=== PATIENT | female | born 1965 | race African-American/Black ===

== ENCOUNTER 2016-09-15 10:15 | Observation (INO) | payer BC ==
[2016-09-15 10:23] VITALS: BMI 43.9
[2016-09-15] MEDS ORDERED: ASPIRIN 81 MG CHEWABLE TABLETS ONE (11:02)
--- NOTE | 2016-09-15 11:17 | PDOC ---
History of Present Illness - General History Source: Patient Exam Limitations: No Limitations <Elvie Conn - Last Filed: 09/15/16 14:04> - General History Source: Patient Exam Limitations: No Limitations - History of Present Illness Initial Comments: 09/15/16 11:18 The patient is a 51 year old female, with a significant past medical history of Asthma, Diverticulosis, HTN who presents to the emergency department with chest pain since last night. The patient describes sharp, intermittent, nonradiating, chest pain however currently is dull and "vibrating". Patient took aspirin last night and reports minimal relief. Patient reports baseline dyspnea on exertion that has progressively worsened over the past few weeks. Patient also mentions one year ago, she was flying on a airplane from [place] and suddenly experienced SOB. Patient was taken to Urgent care which revealed negative workup. Patient also states she was diagnosed with an unspecified cardiac disorder. Patient presents to the ED for further evaluation. Upon arrival, patient's vital signs significant for 95 HR. She denies chest pain, headache or dizziness. She denies fever, chills, abdominal pain, nausea, vomit, diarrhea or constipation. She denies dysuria, frequency, urgency or hematuria. Allergies: rosuvastatin calcium Past surgical history: Cholecystectomy, Tubal ligation Social history: Current everyday smoker for the past 20 years (20 cigarettes) PCP: Dr. Shala Cordova <Kari Gould - Last Filed: 09/15/16 14:10> - General Chief Complaint: Chest Pain Stated Complaint: CHEST PAIN Time Seen by Provider: 09/15/16 10:24 Past History - Past Medical History Anemia: No Asthma: Yes Cancer: No Cardiac Disorders: No CVA: No COPD: No CHF: No Dementia: No Diabetes: No GI Disorders: Yes (DIVERTICULOSIS) Disorders: No HTN: No Hypercholesterolemia: Yes Liver Disease: No Seizures: No Thyroid Disease: No - Surgical History Cholecystectomy: Yes Orthopedic Surgery: No - Psycho/Social/Smoking Cessation Hx Suicidal Ideation: No Smoking Status: Yes Smoking History: Current every day smoker Number of Cigarettes Smoked Daily: 20 Information on smoking cessation initiated: No 'Breaking Loose' booklet given: 11/06/14 Hx Alcohol Use: No Drug/Substance Use Hx: No Substance Use Type: None Hx Substance Use Treatment: No <Elvie Conn - Last Filed: 09/15/16 14:04> <Kari Gould - Last Filed: 09/15/16 14:10> - Past Medical History Allergies/Adverse Reactions: Allergies Allergy/AdvReac Type Severity Reaction Status Date / Time rosuvastatin calcium Allergy Severe Unverified 09/15/16 10:24 [From Crestor] Home Medications: Ambulatory Orders Pravastatin Sodium 10 mg PO DAILY 11/06/14 Metoprolol Succinate [Toprol Xl] 50 mg PO DAILY 09/15/16 Review of Systems - Review of Systems Able to Perform ROS?: Yes Comments:: 09/15/16 11:18 GENERAL/CONSTITUTIONAL: No fever or chills. No weakness. HEAD, EYES, EARS, NOSE AND THROAT: No change in vision. No ear pain or discharge. No sore throat. GASTROINTESTINAL: No nausea, vomiting, diarrhea or constipation. GENITOURINARY: No dysuria, frequency, or change in urination. CARDIOVASCULAR: + chest pain. + dyspnea on exertion. RESPIRATORY: No cough, wheezing, or hemoptysis. MUSCULOSKELETAL: No joint or muscle swelling or pain. No neck or back pain. SKIN: No rash NEUROLOGIC: No headache, vertigo, loss of consciousness, or change in strength/ sensation. ENDOCRINE: No increased thirst. No abnormal weight change. HEMATOLOGIC/LYMPHATIC: No anemia, easy bleeding, or history of blood clots. ALLERGIC/IMMUNOLOGIC: No hives or skin allergy. <Kari Gould - Last Filed: 09/15/16 14:10> *Physical Exam - Vital Signs Last Vital Signs Temp Pulse Resp BP Pulse Ox 98.1 F 93 H 18 124/71 96 09/15/16 10:18 09/15/16 10:18 09/15/16 10:18 09/15/16 10:18 09/15/16 10:18 <Elvie Conn - Last Filed: 09/15/16 14:04> - Vital Signs Last Vital Signs Temp Pulse Resp BP Pulse Ox 98.1 F 93 H 18 124/71 96 09/15/16 10:18 09/15/16 10:18 09/15/16 10:18 09/15/16 10:18 09/15/16 10:18 - Physical Exam Comments: 09/15/16 11:18 GENERAL: Awake, alert, and fully oriented, in no acute distress HEAD: No signs of trauma EYES: PERRLA, EOMI, sclera anicteric, conjunctiva clear ENT: Auricles normal inspection, nares patent, Moist mucosa NECK: Normal ROM, supple, no lymphadenopathy, JVD, or masses LUNGS: Breath sounds equal, clear to auscultation bilaterally. No wheezes, and no crackles HEART: Regular rate and rhythm, normal S1 and S2, no murmurs, rubs or gallops ABDOMEN: +Obese. Soft, nontender, normoactive bowel sounds. No guarding, no rebound. No masses EXTREMITIES: Normal range of motion, no edema. No clubbing or cyanosis. No cords, erythema, or tenderness NEUROLOGICAL: Normal speech SKIN: Warm, Dry, normal turgor, no rashes or lesions noted. <Kari Gould - Last Filed: 09/15/16 14:10> Heart Score/ECG Review #1 General ECG Interpretation: Sinus Rhythm, Normal Rate (96), Normal Intervals, No acute ischemic changes Compared to previous ECG there are: No significant change (compared 02/21/12) <Elvie Conn - Last Filed: 09/15/16 14:04> ED Treatment Course - LABORATORY CBC & Chemistry Diagram: 09/15/16 11:14 09/15/16 11:14 <Elvie Conn - Last Filed: 09/15/16 14:04> - LABORATORY CBC & Chemistry Diagram: 09/15/16 11:14 09/15/16 11:14 <Kari Gould - Last Filed: 09/15/16 14:10> Medical Decision Making - Medical Decision Making 09/15/16 11:14 51 yo F with h/o HTN HLD, and " heart condition" here with /co chest pain. started last evening. sharp intermittent, no radiation. no assoc sob or diaphoresis. not pleuritic. no leg swelling. no h/o dvt or pe. no cough no f/c . has not had pain in the past. did have extensive cardiac workup 11/2015 for exertional sob and tachycardia she was having at that time. no family h/o cad. on exam. pt obese, awake alert lungs clear heart rrr no mrg.abd soft nt nd. ext wwp no calf tenderness. no edema. symmetric pulses. nuero awake alert facies symmetric. moves all ext. differential: angina, infection, gerd, chest wall pain, spasm. no risk factors for PE. plan asa ekg tele trop labs cxr will d/w dr cordova and lead painter. 09/15/16 14:03 d/w dr cordova, pt with h/o pulm htn, atypical septal hypertrophy, had stress in 3 16 was normal. but has very severe sleep apnea, desat at night time. concerns for angina like equivalent due to severe sleep apnea. plan observe in tele. d/w dr marquez. will admit to tele for observation <Elvie Conn - Last Filed: 09/15/16 14:04> - Medical Decision Making 09/15/16 12:[address] Cordova via phone answering service. Awaiting call. 09/15/16 12:29 Patient responded to the call. Patient's case was discussed. 09/15/16 12:[address] Mayra Galvez to admit. Called Dr. Galvez via phone answering service. Patients case was discussed. 09/15/16 12:40 Dr. Caro requests patient be admitted by Medicine for Observation. 09/15/2016 12:51 Dr. Marquez paged via phone answering service. Awaiting call back. 09/15/16 13:03 Dr. Marquez paged via phone answering service. Awaiting call back. 09/15/16 13:21 CXR Impression: No evidence of active pulmonary disease. Reported By: Parth Warren MD 09/15/16 1234 09/15/16 13:52 Dr. Marquez paged via phone answering service. Awaiting call back. 09/15/16 14:00 Dr. Marquez returned the page and patients case was discussed. 09/15/16 14:08 Dr. Arriola-- Cardiology senior communications engineer paged via phone answering service. Awaiting call back. <Kari Gould - Last Filed: 09/15/16 14:10> *DC/Admit/Observation/Transfer - Discharge Dispostion Admit: Yes <Elvie Conn - Last Filed: 09/15/16 14:04> - Attestations Scribe Attestion: 09/15/16 11:18 Documentation prepared by Kari Gould, acting as medical fee clerk for Elvie Conn MD, MD/DO. <Kari Gould - Last Filed: 09/15/16 14:10> Diagnosis at time of Disposition: Chest pain - Referrals Referrals: Shala Cordova MD [Primary Care Provider] -
[2016-09-15 11:18] LABS: BASOPHIL 2.9 % (0-2.0); EOSINOPHIL 0.7 % (0-4.5); MCHC 33.4 g/dl (32.0-36.0); MEAN CELL VOLUME 95.7 fl (80-96); MEAN PLT VOLUME 7.6 fl (7.5-11.1); NEUTROPHILS 49.9 % (42.8-82.8); PLATELET COUNT 248 K/MM3 (134-434); RDW 16.1 % (11.6-15.6); WHITE BLOOD COUNT 9.2 K/mm3 (4.0-10.0)
[2016-09-15] MEDS ORDERED: ASPIRIN 81 MG CHEWABLE TABLETS PO ONE (11:18)
[2016-09-15 11:31] LABS: INR 0.97 (0.82-1.09); PROTHROMBIN TIME (PATIENT) 10.7 SEC (9.98-11.88)
[2016-09-15 11:33] LABS: ACTIVATED PTT 33.6 SECONDS (26.9-34.4)
[2016-09-15 11:50] LABS: ALBUMIN 3.3 g/dl (3.4-5.0); ANION GAP 6 (8-16); BILIRUBIN,TOTAL 0.2 mg/dL (0.2-1.0); CALCIUM 8.6 mg/dL (8.5-10.1); CO2 26 mmol/L (21-32); CREATININE 0.6 mg/dL (0.55-1.02); GLUCOSE,RANDOM 113 mg/dL (74-106); SGOT/AST 14 U/L (15-37); SGPT/ALT 21 U/L (12-78)
[2016-09-15 11:52] LABS: ALK PHOS 76 U/L (45-117); CPK 177 IU/L (26-192); TOT PROT 6.5 g/dl (6.4-8.2); TROPONIN I 0.04 ng/ml (0.00-0.05)
--- NOTE | 2016-09-15 19:44 | HP ---
Admitting History and Physical - Primary Care Physician PCP: Ce Agustin - Admission Chief Complaint: chest pain History of Present Illness: - 51 year old female, with a significant past medical history of Asthma, Diverticulosis, HTN who presents to the emergency department with chest pain since last night. The patient describes sharp, intermittent, nonradiating. Patient took aspirin last night and reports minimal relief. Patient reports baseline dyspnea on exertion that has progressively worsened over the past few weeks. - Past Medical History Cardiovascular: Yes: HTN Pulmonary: Yes: Asthma ...LMP: 08/07/12 - Smoking History Smoking history: Current every day smoker Aproximately how many cigarettes per day: 20 - Alcohol/Substance Use Hx Alcohol Use: No Home Medications - Allergies Allergies/Adverse Reactions: Allergies Allergy/AdvReac Type Severity Reaction Status Date / Time rosuvastatin calcium Allergy Severe Unverified 09/15/16 10:24 [From Crestor] - Home Medications Home Medications: Ambulatory Orders Pravastatin Sodium 10 mg PO DAILY 11/06/14 Metoprolol Succinate [Toprol Xl] 50 mg PO DAILY 09/15/16 Physical Examination Vital Signs: Vital Signs Temperature 98.4 F 09/15/16 19:28 Pulse Rate 76 09/15/16 19:28 Respiratory Rate 18 09/15/16 19:28 Blood Pressure 117/68 09/15/16 19:28 O2 Sat by Pulse Oximetry (%) 98 09/15/16 19:28 Constitutional: Yes: No Distress HENT: Yes: Atraumatic Neck: Yes: Supple Cardiovascular: Yes: Regular Rate and Rhythm Respiratory: Yes: CTA Bilaterally Gastrointestinal: Yes: Normal Bowel Sounds Extremities: Yes: WNL Edema: No Peripheral Pulses WNL: Yes Neurological: Yes: Alert, Oriented Problem List - Problems (1) Chest pain Assessment/Plan: tele monitoring fu cardiac enzymes cardiology consult Code(s): R07.9 - CHEST PAIN, UNSPECIFIED Qualifiers: Chest pain type: unspecified Qualified Code(s): R07.9 - Chest pain, unspecified (2) Diverticulosis Code(s): K57.90 - DVRTCLOS OF INTEST, PART UNSP, W/O PERF OR ABSCESS W/O BLEED Qualifiers: Diverticulosis site: unspecified location Diverticulosis bleeding: diverticulosis without bleeding Qualified Code(s): K57.90 - Diverticulosis of intestine, part unspecified, without perforation or abscess without bleeding (3) HTN (hypertension) Assessment/Plan: on meds Code(s): I10 - ESSENTIAL (PRIMARY) HYPERTENSION Qualifiers: Hypertension type: essential hypertension Qualified Code(s): I10 - Essential (primary) hypertension (4) Hypercholesterolemia Assessment/Plan: on meds stable Code(s): E78.00 - PURE HYPERCHOLESTEROLEMIA, UNSPECIFIED Assessment/Plan Laboratory Results - last 24 hr 09/15/16 09/15/16 09/15/16 11:14 11:14 11:14 WBC 9.2 RBC 4.76 Hgb 15.2 Hct 45.6 H MCV 95.7 MCH 32.0 MCHC 33.4 RDW 16.1 H Plt Count 248 MPV 7.6 Neutrophils % 49.9 Lymphocytes % 41.8 H Monocytes % 4.7 Eosinophils % 0.7 Basophils % 2.9 H INR 0.97 PTT (Actin FS) 33.6 Sodium 139 Potassium 3.7 Chloride 107 Carbon Dioxide 26 Anion Gap 6 L BUN 6 L Creatinine 0.6 Creat Clearance w eGFR > 60 Random Glucose 113 H D Calcium 8.6 Total Bilirubin 0.2 D AST 14 L D ALT 21 D Alkaline Phosphatase 76 Creatine Kinase 177 Creatine Kinase Index 1.2 CK-MB (CK-2) 2.162 Troponin I 0.04 Total Protein 6.5 Albumin 3.3 L Serum , Qual 09/15/16 11:14 WBC RBC Hgb Hct MCV MCH MCHC RDW Plt Count MPV Neutrophils % Lymphocytes % Monocytes % Eosinophils % Basophils % INR PTT (Actin FS) Sodium Potassium Chloride Carbon Dioxide Anion Gap BUN Creatinine Creat Clearance w eGFR Random Glucose Calcium Total Bilirubin AST ALT Alkaline Phosphatase Creatine Kinase Creatine Kinase Index CK-MB (CK-2) Troponin I Total Protein Albumin Serum , Qual Negative Active Medications Generic Name Dose Route Start Last Admin Trade Name Freq PRN Reason Stop Dose Admin Aspirin 81 mg 09/16/16 11:00 09/16/16 12:12 Ecotrin - PO 81 mg DAILY [facility] Administration Metoprolol Succinate 50 mg 09/16/16 10:00 09/16/16 10:05 Toprol Xl - PO 50 mg DAILY [facility] Administration Non-Formulary Medication 10 mg 09/16/16 10:00 Pravastatin Sodium [Pravastatin Sodium] PO DAILY [facility]
[2016-09-15 19:49] LABS: TROPONIN I 0.04 ng/ml (0.00-0.05)
[2016-09-16 07:43] LABS: BASOPHIL 0.6 % (0-2.0); EOSINOPHIL 0.8 % (0-4.5); MCH 32.3 pg (25.7-33.7); MCHC 33.8 g/dl (32.0-36.0); MEAN CELL VOLUME 95.7 fl (80-96); MEAN PLT VOLUME 7.6 fl (7.5-11.1); NEUTROPHILS 48.5 % (42.8-82.8); PLATELET COUNT 250 K/MM3 (134-434); RDW 15.9 % (11.6-15.6); WHITE BLOOD COUNT 8.3 K/mm3 (4.0-10.0)
[2016-09-16 08:11] LABS: ALBUMIN 3.4 g/dl (3.4-5.0); ANION GAP 9 (8-16); CALCIUM 8.7 mg/dL (8.5-10.1); CO2 26 mmol/L (21-32); GLUCOSE,RANDOM 101 mg/dL (74-106)
[2016-09-16 08:12] LABS: ALK PHOS 78 U/L (45-117); BILIRUBIN,TOTAL 0.3 mg/dL (0.2-1.0); CREATININE 0.6 mg/dL (0.55-1.02); SGOT/AST 24 U/L (15-37); SGPT/ALT 28 U/L (12-78); TOT PROT 6.4 g/dl (6.4-8.2); TROPONIN I 0.04 ng/ml (0.00-0.05)
[2016-09-16] MEDS ORDERED: PATIENT'S OWN MEDICATION (NON-FORMULARY) (Pravastatin Sodium [Pravastatin Sodium] 10 MG) PO SCH (10:00)
[2016-09-16] MEDS ORDERED: METOPROLOL SUCCINATE 50 MG TAB.SR.24H (FP) PO SCH (10:00)
--- NOTE | 2016-09-16 10:46 | CON.CARD ---
Consult Consult Specialty:: Cardiology Referred by:: Dr. Agustin Reason for Consultation:: Cardiac evaluation - History of Present Illness Chief Complaint: Chest pain History of Present Illness: Patient is a 51 year old female with underlying history of hypertension, diverticulosis and hypercholesterolemia who presents with left side chest pressure described initially "sharp" and now a dullness without radiation to arm or jaw. She denies shortness of breath or palpitations. She denies paroxysmal nocturnal dyspnea or orthopnea. She denies fever or chills. She denies headache or lightheadedness. Patient is followed by Dr. Shala Cordova at [facility]. She has had cardiac work up last year and was told she has a heart condition, but she could not elaborate. Cardiology consultation was called for further evaluation. - History Source History Provided By: Patient, Medical Record Limitations to Obtaining History: No Limitations - Past Medical History Cardio/Vascular: Yes: HTN, Hyperlipdemia Gastrointestinal: Yes: Diverticulosis, Pancreatitis ...LMP: 08/27/16 ...: No - Past Surgical History Past Surgical History: Yes: Cholecystectomy Additional Surgical History: Ectopic - Alcohol/Substance Use Hx Alcohol Use: No - Smoking History Smoking history: Current every day smoker Have you smoked in the past 12 months: Yes Aproximately how many cigarettes per day: 10 Home Medications - Allergies Allergies/Adverse Reactions: Allergies Allergy/AdvReac Type Severity Reaction Status Date / Time rosuvastatin calcium Allergy Severe Unverified 09/15/16 10:24 [From Crestor] - Home Medications Home Medications: Ambulatory Orders Pravastatin Sodium 10 mg PO DAILY 11/06/14 Metoprolol Succinate [Toprol Xl] 50 mg PO DAILY 09/15/16 Family Disease History - Family Disease History Family Disease History: Diabetes: Father, Heart Disease: Brother (Cardiomyopathy ) Review of Systems - Review of Systems Constitutional: denies: Chills, Fever Cardiovascular: reports: Chest Pain. denies: Palpitations, Shortness of Breath Respiratory: denies: Cough, Hemoptysis, Orthopnea, PND, SOB, SOB on Exertion Gastrointestinal: denies: Abdominal Pain, Constipation, Diarrhea, Melena, Nausea , Rectal Bleeding, Vomiting Neurological: denies: Dizziness, Headache, Seizure, Syncope Vital Signs: Vital Signs Temperature 97 F L 09/16/16 08:47 Pulse Rate 72 09/16/16 08:47 Respiratory Rate 18 09/16/16 08:47 Blood Pressure 106/57 09/16/16 08:47 O2 Sat by Pulse Oximetry (%) 99 09/15/16 20:26 Neck: Yes: Supple Respiratory: Yes: CTA Bilaterally Gastrointestinal: Yes: Normal Bowel Sounds, Soft. No: Tenderness Cardiovascular: Yes: Regular Rate and Rhythm JVD: No Carotid Bruit: No PMI: Non-Displaced Heart Sounds: Yes: S1, S2. No: Gallop Edema: No - Other Data Labs, Other Data: CBC, BMP 09/16/16 06:45 09/16/16 06:45 INR, PTT INR 0.97 (0.82-1.09) 09/15/16 11:14 Troponin, BNP 09/15/16 09/16/16 19:15 06:45 Troponin I 0.04 0.04 Laboratory Results - last 24 hr 09/15/16 09/15/16 09/15/16 11:14 11:14 11:14 WBC 9.2 RBC 4.76 Hgb 15.2 Hct 45.6 H MCV 95.7 MCH 32.0 MCHC 33.4 RDW 16.1 H Plt Count 248 MPV 7.6 Neutrophils % 49.9 Lymphocytes % 41.8 H Monocytes % 4.7 Eosinophils % 0.7 Basophils % 2.9 H INR 0.97 PTT (Actin FS) 33.6 Sodium 139 Potassium 3.7 Chloride 107 Carbon Dioxide 26 Anion Gap 6 L BUN 6 L Creatinine 0.6 Creat Clearance w eGFR > 60 Random Glucose 113 H D Calcium 8.6 Total Bilirubin 0.2 D AST 14 L D ALT 21 D Alkaline Phosphatase 76 Creatine Kinase 177 Creatine Kinase Index 1.2 CK-MB (CK-2) 2.162 Troponin I 0.04 Total Protein 6.5 Albumin 3.3 L Serum , Qual 09/15/16 09/15/16 09/16/16 11:14 19:15 06:45 WBC 8.3 RBC 4.84 Hgb 15.6 H Hct 46.3 H MCV 95.7 MCH 32.3 MCHC 33.8 RDW 15.9 H Plt Count 250 MPV 7.6 Neutrophils % 48.5 Lymphocytes % 41.6 H Monocytes % 8.5 D Eosinophils % 0.8 Basophils % 0.6 INR PTT (Actin FS) Sodium Potassium Chloride Carbon Dioxide Anion Gap BUN Creatinine Creat Clearance w eGFR Random Glucose Calcium Total Bilirubin AST ALT Alkaline Phosphatase Creatine Kinase 196 H Creatine Kinase Index 1.3 CK-MB (CK-2) 2.653 Troponin I 0.04 Total Protein Albumin Serum , Qual Negative 09/16/16 09/16/16 06:45 06:45 WBC RBC Hgb Hct MCV MCH MCHC RDW Plt Count MPV Neutrophils % Lymphocytes % Monocytes % Eosinophils % Basophils % INR PTT (Actin FS) Sodium 139 Potassium 4.0 Chloride 104 Carbon Dioxide 26 Anion Gap 9 BUN 9 D Creatinine 0.6 Creat Clearance w eGFR > 60 Random Glucose 101 Calcium 8.7 Total Bilirubin 0.3 D AST 24 D ALT 28 D Alkaline Phosphatase 78 Creatine Kinase 186 Creatine Kinase Index 1.2 CK-MB (CK-2) 2.380 Troponin I 0.04 Total Protein 6.4 Albumin 3.4 Serum , Qual Sinus rhythm with nonspecific T wave abnormality in lateral leads Echo: Pending Imaging - Results Chest X-ray: Report Reviewed (Unremarkable) EKG: Report Reviewed Problem List - Problems (1) Chest pain Code(s): R07.9 - CHEST PAIN, UNSPECIFIED Qualifiers: Chest pain type: unspecified Qualified Code(s): R07.9 - Chest pain, unspecified (2) HTN (hypertension) Code(s): I10 - ESSENTIAL (PRIMARY) HYPERTENSION Qualifiers: Hypertension type: essential hypertension Qualified Code(s): I10 - Essential (primary) hypertension (3) Hypercholesterolemia Code(s): E78.00 - PURE HYPERCHOLESTEROLEMIA, UNSPECIFIED (4) Diverticulosis Code(s): K57.90 - DVRTCLOS OF INTEST, PART UNSP, W/O PERF OR ABSCESS W/O BLEED Qualifiers: Diverticulosis site: unspecified location Diverticulosis bleeding: diverticulosis without bleeding Qualified Code(s): K57.90 - Diverticulosis of intestine, part unspecified, without perforation or abscess without bleeding Assessment/Plan 1. Chest pain syndrome, etiology to be determined, rule out cardiac cause 2. Hypertension 3. Hypercholesterolemia 4. History of diverticulosis - asymptomatic PLAN: 1. Continue Metoprolol and Pravastatin 2. Add ASA 81 mg once a day 3. Transthoracic echocardiography to assess LV/RV and valvular function 4. Depending on findings, further cardiac work up may be considered including nuclear stress test if not done recently 5. Obtain medical record from [facility]. 6. Fasting lipid panel Further plans are to follow Willem Boyd MD
[2016-09-16] MEDS ORDERED: ASPIRIN COATED 81 MG TABLET.EC PO SCH (11:00)
[2016-09-16] MEDS ORDERED: ASPIRIN 81 MG CHEWABLE TABLETS ONE (12:03)
[2016-09-16] MEDS ORDERED: ASPIRIN COATED 81 MG TABLET.EC ONE (12:15)
--- NOTE | 2016-09-16 12:57 | EKG ---
Test Reason : Blood Pressure : / mmHG Vent. Rate : 096 BPM Atrial Rate : 096 BPM P-R Int : 158 ms QRS Dur : 074 ms QT Int : 340 ms P-R-T Axes : 060 015 093 degrees QTc Int : 429 ms NORMAL SINUS RHYTHM POSSIBLE LEFT ATRIAL ENLARGEMENT LEFT VENTRICULAR HYPERTROPHY ABNORMAL QRS-T ANGLE, CONSIDER PRIMARY T WAVE ABNORMALITY ABNORMAL ECG WHEN COMPARED WITH ECG OF 21-FEB-2012 18:30, CRITERIA FOR ANTERIOR INFARCT ARE NO LONGER PRESENT REPEAT EKG IF CLINICALLY INDICATED Confirmed by ANA SCALES MD ([id number]) on 09/16/2016 12:57:34 PM Referred By: Confirmed By:ANA SCALES MD
--- NOTE | 2016-09-16 15:39 | PN ---
Progress Note, Physician - Current Medication List Current Medications: Active Medications Aspirin (Ecotrin -) 81 mg PO DAILY [facility] Last Admin: 09/16/16 12:12 Dose: 81 mg Metoprolol Succinate (Toprol Xl -) 50 mg PO DAILY [facility] Last Admin: 09/16/16 10:05 Dose: 50 mg Non-Formulary Medication (Pravastatin Sodium [Pravastatin Sodium]) 10 mg PO DAILY [facility] - Objective Vital Signs: Vital Signs Temperature 98.1 F 09/16/16 14:50 Pulse Rate 76 09/16/16 14:50 Respiratory Rate 20 09/16/16 14:50 Blood Pressure 121/63 09/16/16 14:50 O2 Sat by Pulse Oximetry (%) 99 09/16/16 11:00 HENT: Yes: Atraumatic Neck: Yes: Supple Cardiovascular: Yes: Regular Rate and Rhythm Respiratory: Yes: CTA Bilaterally Gastrointestinal: Yes: Normal Bowel Sounds Extremities: Yes: WNL Edema: No Peripheral Pulses WNL: Yes Neurological: Yes: Alert, Oriented Labs: CBC, BMP 09/16/16 06:45 09/16/16 06:45 INR, PTT INR 0.97 (0.82-1.09) 09/15/16 11:14 Problem List - Problems (1) Chest pain Assessment/Plan: tele monitoring fu cardiac enzymes cardiology consult Code(s): R07.9 - CHEST PAIN, UNSPECIFIED Qualifiers: Chest pain type: unspecified Qualified Code(s): R07.9 - Chest pain, unspecified (2) Diverticulosis Code(s): K57.90 - DVRTCLOS OF INTEST, PART UNSP, W/O PERF OR ABSCESS W/O BLEED Qualifiers: Diverticulosis site: unspecified location Diverticulosis bleeding: diverticulosis without bleeding Qualified Code(s): K57.90 - Diverticulosis of intestine, part unspecified, without perforation or abscess without bleeding (3) HTN (hypertension) Assessment/Plan: on meds Code(s): I10 - ESSENTIAL (PRIMARY) HYPERTENSION Qualifiers: Hypertension type: essential hypertension Qualified Code(s): I10 - Essential (primary) hypertension (4) Hypercholesterolemia Assessment/Plan: on meds stable Code(s): E78.00 - PURE HYPERCHOLESTEROLEMIA, UNSPECIFIED
--- NOTE | 2016-09-16 17:53 | DS ---
Physical Examination Vital Signs: Vital Signs Temperature 98.1 F 09/16/16 14:50 Pulse Rate 76 09/16/16 14:50 Respiratory Rate 20 09/16/16 15:00 Blood Pressure 121/63 09/16/16 14:50 O2 Sat by Pulse Oximetry (%) 97 09/16/16 15:00 Labs: CBC, BMP 09/16/16 06:45 09/16/16 06:45 Discharge Summary Reason For Visit: CHEST PAIN Current Active Problems Chest pain (Acute) Diverticulosis (Acute) HTN (hypertension) (Acute) Hypercholesterolemia (Acute) - Instructions Diet, Activity, Other Instructions: see cardiology 1 week Referrals: Willem Boyd MD [Staff Physician] - Shala Cordova MD [Primary Care Provider] - - Home Medications Comprehensive Discharge Medication List: Ambulatory Orders Pravastatin Sodium 10 mg PO DAILY 11/06/14 Metoprolol Succinate [Toprol Xl] 50 mg PO DAILY 09/15/16 dc home cleared by cardiology fu cardio 1 week
[2016-09-16 18:37] VITALS: BP 118/52; PULSE 68; TEMP 97.2
== END 2016-09-16 20:44 | disposition home or self-care (01) ==
LOC: JER 10:15 → JERBED 14:04 → J4W 09-16 14:02
PROVIDERS: ADMIT Internal Medicine; ATTEND Internal Medicine
DX: R07.9 Chest pain, unspecified (principal); I10 Essential (primary) hypertension; E78.00 Pure hypercholesterolemia, unspecified; K57.90 Diverticulosis of intestine, part unspecified, without perforation or abscess without bleeding; J45.909 Unspecified asthma, uncomplicated; F17.210 Nicotine dependence, cigarettes, uncomplicated; Z88.8 Allergy status to other drugs, medicaments and biological substances
CPT/HCPCS: 36415; 71020-TC; 80053; 82553; 84484; 84703; 85025; 85610; 85730; 93005; 93010; 93306-TC; 99285-25; G0378

== ENCOUNTER 2021-02-25 11:13 | Emergency (ER) | payer BC ==
[2021-02-25 11:52] VITALS: TEMP 98.5; BMI 40.3
[2021-02-25 16:17] LABS: BASO % 0.7 % (0-2.0); HEMATOCRIT 46.2 % (32.4-45.2); MCH 30.1 pg (25.7-33.7); MCHC 32.5 g/dl (32.0-36.0); MEAN CELL VOLUME 92.7 fl (80-96); MEAN PLT VOLUME 7.3 fl (7.5-11.1); MONO % 15.7 % (3.8-10.2); NEUT % 60.6 % (42.8-82.8); PLATELET COUNT 272 10^3/uL (134-434); RBC 4.98 M/mm3 (3.60-5.2); RDW 15.7 % (11.6-15.6); WHITE BLOOD COUNT 7.4 K/mm3 (4.0-10.0)
[2021-02-25 16:23] LABS: INR 1.15 (0.83-1.09); PROTHROMBIN TIME (PATIENT) 13.3 SEC (9.7-13.0)
[2021-02-25] MEDS ORDERED: guaiFENesin/CODEINE 10 ML UNIT-DOSE CUPS PO ONE (16:34)
[2021-02-25] MEDS ORDERED: ACETAMINOPHEN 1000 MG/100 ML BAG IVPB ONE (16:34)
[2021-02-25 17:13] LABS: ALBUMIN 3.7 g/dl (3.4-5.0); BLOOD UREA NITROGEN 8.8 mg/dL (7-18)
[2021-02-25 17:16] LABS: CREATININE 0.6 mg/dL (0.55-1.3)
[2021-02-25 17:18] LABS: BILIRUBIN,TOTAL 0.2 mg/dL (0.2-1)
[2021-02-25] MEDS ORDERED: guaiFENesin/CODEINE 5 ML UNIT-DOSE CUPS PO ONE (17:30)
[2021-02-25] MEDS ORDERED: ACETAMINOPHEN INJECTION 100 ML IVPB ONE (17:30)
[2021-02-25] MEDS ORDERED: ACETAMINOPHEN 325 MG TABLET (FP) PO ONE (17:35)
[2021-02-25] MEDS ORDERED: ACETAMINOPHEN 500 MG TABLET (FP) ONE (17:39)
[2021-02-25 19:09] VITALS: BP 145/75; PULSE 90
== END 2021-02-25 19:10 | disposition home or self-care (01) ==
LOC: JER 11:13
DX: U07.1 COVID-19 (principal)
CPT/HCPCS: 36415; 71045-TC-FY; 80053; 82550; 82553; 83880; 84484; 85025; 85610; 87804; 93005; 93010; 99285-25; C9803; U0003; U0005

== ENCOUNTER 2022-09-08 10:18 | Emergency (ER) | payer BC ==
[2022-09-08 10:42] VITALS: BP 122/80; PULSE 71; RESP 20; TEMP 97.4; BMI 38.9
[2022-09-08] MEDS ORDERED: ACETAMINOPHEN 1000 MG/100 ML BAG IVPB ONE (11:45)
[2022-09-08] MEDS ORDERED: ONDANSETRON 4 MG/2 ML VIAL IVPB ONE (11:45)
[2022-09-08] MEDS ORDERED: SODIUM CHLORIDE 1,000 ML IV ONE (11:45)
[2022-09-08] MEDS ORDERED: ACETAMINOPHEN INJECTION 100 ML IVPB ONE (12:30)
[2022-09-08] MEDS ORDERED: ONDANSETRON 4 MG/2 ML VIAL ONE (12:30)
[2022-09-08 13:15] LABS: BASO % 0.7 % (0-2.0); EOS % 0.1 % (0-4.5); HEMATOCRIT 50.8 % (32.4-45.2); HEMOGLOBIN 17.9 GM/dL (10.7-15.3); LYMPH % 24.6 % (8-40); MCH 31.6 pg (25.7-33.7); MCHC 35.2 g/dl (32.0-36.0); MEAN CELL VOLUME 89.7 fl (80-96); MEAN PLT VOLUME 7.6 fl (7.5-11.1); MONO % 4.9 % (3.8-10.2); NEUT % 69.7 % (42.8-82.8); PLATELET COUNT 369 10^3/uL (134-434); RBC 5.66 M/mm3 (3.60-5.2); RDW 15.6 % (11.6-15.6); WHITE BLOOD COUNT 8.5 K/mm3 (4.0-10.0)
[2022-09-08 13:34] LABS: CHLORIDE 99 mmol/L (98-107); SODIUM 130 mmol/L (136-145)
[2022-09-08 13:36] LABS: CALCIUM 9.3 mg/dL (8.5-10.1)
[2022-09-08 13:37] LABS: ALBUMIN 3.6 g/dl (3.4-5.0); BLOOD UREA NITROGEN 14.1 mg/dL (7-18); CO2 28 mmol/L (21-32); GLUCOSE,RANDOM 124 mg/dL (74-106); LIPASE < 10 U/L (73-393)
[2022-09-08 13:39] LABS: EPI CELLS 17 /uL (0-25.1); HYALINE CASTS 0 /uL (0-3.1); PH,URINE 5.5 (5.0-8.0); URINE APPEARANCE TURBID; URINE BACTERIA 75 /uL (0-1359); URINE BILIRUBIN NEGATIVE (NEGATIVE); URINE COLOR DK YELLOW; URINE GLUCOSE (UA) NEGATIVE (NEGATIVE); URINE KETONE TRACE (NEGATIVE); URINE LEUK ESTERASE NEGATIVE (NEGATIVE); URINE NITRITE NEGATIVE (NEGATIVE); URINE PROTEIN TRACE (NEGATIVE); URINE RBC 809 /uL (0-23.9); URINE WBC 10 /uL (0-25.8)
[2022-09-08 13:40] LABS: CREATININE 0.9 mg/dL (0.55-1.3)
[2022-09-08 13:42] LABS: TOT PROT 9.4 g/dl (6.4-8.2)
[2022-09-08 13:43] LABS: ALK PHOS 98 U/L (45-117)
[2022-09-08 13:45] LABS: N-TERMINAL BNP 402.1 pg/ml (5-125)
[2022-09-08 14:07] LABS: ANION GAP 3 MMOL/L (8-16); POTASSIUM > 10.0 mmol/L (3.5-5.1)
[2022-09-08 19:07] LABS: POTASSIUM 4.4 mmol/L (3.5-5.1)
[2022-09-08 19:09] LABS: CALCIUM 8.8 mg/dL (8.5-10.1)
[2022-09-08 19:10] LABS: ALBUMIN 3.7 g/dl (3.4-5.0); BLOOD UREA NITROGEN 12.9 mg/dL (7-18)
[2022-09-08 19:13] LABS: CREATININE 0.9 mg/dL (0.55-1.3)
[2022-09-08 19:15] LABS: BILIRUBIN,TOTAL 0.2 mg/dL (0.2-1); TOT PROT 7.6 g/dl (6.4-8.2)
== END 2022-09-08 19:27 | disposition home or self-care (01) ==
LOC: JER 10:18
PROC: 3E033NZ Introduction of Analgesics, Hypnotics, Sedatives into Peripheral Vein, Percutaneous Approach (ICD-10-PCS; principal; 2022-09-08)
PROC: 3E033GC Introduction of Other Therapeutic Substance into Peripheral Vein, Percutaneous Approach (ICD-10-PCS; 2022-09-08)
PROC: 3E0337Z Introduction of Electrolytic and Water Balance Substance into Peripheral Vein, Percutaneous Approach (ICD-10-PCS; 2022-09-08)
DX: R10.9 Unspecified abdominal pain (principal); R11.2 Nausea with vomiting, unspecified; R53.1 Weakness; N20.0 Calculus of kidney; R05.9 Cough, unspecified
CPT/HCPCS: 36415; 71046-TC-FY; 74176-TC; 80053; 81003; 83690; 83880; 84484; 85025; 93005; 93010; 99285-25